=== PATIENT | male | born 1980 | race Caucasian/White ===

== ENCOUNTER 2024-10-01 11:41 | Emergency (ER) | payer MEDICAID, SELFPAY ==
[2024-10-01 12:03] VITALS: BP 128/72; PULSE 86; RESP 17; TEMP 36.6; O2SAT 97; BMI 27.3
--- NOTE | 2024-10-01 12:04 | XR_ITS ---
Examination: CT abdomen and pelvis without contrast. Coronal 3-D reconstructions. Sagittal 2-D reconstructions. Date and time of exam:October 01, 2021 at 1212 hrs. Indications: Right lower abdominal pain beginning 2 days ago CTDI: vol (mGy): 7.64 DLP: (mGycm): 409 Technique: Axial images of the abdomen have been obtained, 3 mm slice thickness Intravenous contrast material has not been administered. Low dose protocols were performed. One or more of the following dose reduction techniques were used; automated exposure control, adjustment of the mA and/or KV according to patient size, use of iterative reconstruction technique. Findings: 3 mm pulmonary nodule right lower lobe image 27 No visualized liver or splenic lesion No gallstones No pancreatic or adrenal mass Mild right hydronephrosis secondary to 2.5 mm mid right ureteral calculus, coronal image 66 Normal appendix No bowel obstruction No bladder calculi No prostatomegaly Advanced degenerative disc disease L5-S1 Impression: 3 mm pulmonary nodule right lower lobe, recommend PA lateral chest follow-up Mild right hydronephrosis secondary to 2.5 mm mid right ureteral calculus
--- NOTE | 2024-10-01 12:05 | PD.EDRME ---
Rapid Medical Screening Exam RME Arrival date/time: 10/01/24 11:41 44-year-old male presents emergency department complaints of abdominal pain and flank pain Chief Complaint: Abdominal Pain Time Seen by Provider: 10/01/24 12:02 Vital signs: Vital Signs Temperature 97.8 F 10/01/24 12:03 Pulse Rate 86 10/01/24 12:03 Respiratory Rate 17 10/01/24 12:03 Blood Pressure 128/72 10/01/24 12:03 Pulse Oximetry (%) 97 10/01/24 12:03 Oxygen Delivery Method Room Air 10/01/24 12:03
[2024-10-01] MEDS: ONDANSETRON ODT 4 MG TABRAP PO (12:22)
[2024-10-01] MEDS: HYDROcodone/APAP 5/325 TABLET 1 TAB PO (12:22)
[2024-10-01] MEDS: KETOROLAC INJ 30 MG/ML VIAL IM (12:22)
[2024-10-01 12:55] LABS: Basophils # (Auto) 0.1 Thou/mm3 (0.0-0.2); Basophils % (Auto) 1 % (0-2.5); Eosinophils # (Auto) 0.2 Thou/mm3 (0.0-0.5); Eosinophils % (Auto) 2 % (0-10); Hematocrit 39.2 % (41.0-53.0); Hemoglobin 13.7 g/dL (13.5-16.0); Immature Granulocytes % (Auto) 0 % (0-0); Immature Granulocytes Auto 0.05 Thou/mm3 (0.00-0.00); Lymphocytes # (Auto) 1.4 Thou/mm3 (1.0-4.8); Lymphocytes % (Auto) 11 % (10-50); Mean Corpuscular HGB Conc 34.9 g/dl (31.0-37.0); Mean Corpuscular Volume 89 fL (80-100); Monocytes # (Auto) 1.3 Thou/mm3 (0.0-0.8); Monocytes % (Auto) 11 % (0-12); Neutrophils # (Auto) 9.3 Thou/mm3 (1.8-7.7); Neutrophils % (Auto) 76 % (37-80); Nucleated Red Blood Cell % 0 /100 WBC (0); Platelet Count 301 Thou/mm3 (140-440); RDW Standard Deviation 42.3 fL (35.1-43.9); Red Blood Count 4.42 Miln/mm3 (4.50-5.90); White Blood Count 12.3 Thou/mm3 (3.8-10.6)
[2024-10-01 13:14] LABS: Alanine Aminotransferase 12 U/L (10-49); Albumin, Serum 4.2 gm/dL (3.5-5.0); Albumin/Globulin Ratio 1.8 (1.2-2.2); Alkaline Phosphatase 72 U/L (46-116); Anion Gap 3 (7-16); Aspartate Amino Transferase < 10 U/L (0-34); BUN/Creatinine Ratio 10 Ratio (12-20); Bilirubin,Total 0.6 mg/dL (0.3-1.2); Blood Urea Nitrogen 11 mg/dL (9-23); Calcium 9.3 mg/dL (8.3-10.6); Calcium (Corrected) 9.3 mg/dL (8.5-10.1); Carbon Dioxide 28.1 mMol/L (20.0-31.0); Chloride 107 mMol/L (98-107); Creatinine (Component) 1.1 mg/dL (0.6-1.3); Estimated Creatinine Clearance 85.7 mL/min (>60); Globulin 2.3 gm/dL (2.3-3.5); Glucose 114 mg/dL (74-106); Lipase 25 U/L (12-53); Osmolality,Calculated 276 (275-295); Sodium 138 mMol/L (136-145); Total Protein 6.5 gm/dL (5.7-8.2); eGFR > 60 See Note
--- NOTE | 2024-10-01 13:18 | EDNOTE_ITS ---
ED Abdominal Pain RME/HPI General Chief Complaint: Abdominal Pain Stated complaint: right lower ab pain Time seen by provider: 10/01/24 12:02 Arrival date/time: 10/01/24 11:41 44-year-old male presents to the emergency department complaints of right side abdominal pain and flank pain patient reports no fever does report nausea without vomiting Limitations: no limitations RME / HPI RME / HPI narrative: 10/01/24 11:41 44-year-old male presents emergency department complaints of abdominal pain and flank pain Related Data Previous Rx's ?Medication ?Instructions ?Recorded ibuprofen 800 mg tablet 800 mg PO TID #30 tabs 09/10/19 ciprofloxacin HCl 500 mg tablet 500 mg PO BID 7 days #14 tabs 10/01/24 hydrocodone 5 mg-acetaminophen 325 1 tab PO BID PRN pain #6 tabs 10/01/24 mg tablet ibuprofen 800 mg tablet 800 mg PO TID PRN pain #30 tabs 10/01/24 Allergies Allergy/AdvReac Type Severity Reaction Status Date / Time No Known Allergies Allergy Verified 09/11/23 23:57 Review of Systems Review of Systems Systems Reviewed: All systems reviewed, normal except as documented Constitutional Constitutional: Reports system reviewed and no additional complaints, except as documented, Denies fever(s) and Denies headache(s) Eyes Eyes: Reports system reviewed and no additional complaints, except as documented and Denies blurry vision ENT Ears, Nose, Mouth, and Throat: Reports system reviewed and no additional complaints, except as documented, Denies headache(s), Denies nasal congestion and Denies nasal discharge Cardiovascular Cardiovascular: Reports system reviewed and no additional complaints, except as documented, Denies chest pain and Denies dyspnea Respiratory Respiratory: Reports system reviewed and no additional complaints, except as documented, Denies chest congestion, Denies cough and Denies dyspnea Gastrointestinal Gastrointestinal: Reports system reviewed and no additional complaints, except as documented and Denies abdominal pain Genitourinary Genitourinary: Reports system reviewed and no additional complaints, except as documented, Denies difficulty urinating, Denies dysuria and Reports flank pain Integumentary/Breasts Skin/Breast: Reports system reviewed and no additional complaints, except as documented and Denies rash Neurologic Neurologic: Reports system reviewed and no additional complaints, except as documented, Reports as per HPI and Denies headache(s) Past Medical History Past Medical History CARDIAC: Negative Congestive Heart Failure RESPIRATORY: Negative Chronic Obstructive Pulmonary Disease (COPD) GENITOURINARY: Negative Renal Disease ENDOCRINE: Negative Diabetes Mellitus Type 1 or Diabetes Mellitus Type 2 PSYCHO/SOCIAL: Positive Depression and Anxiety Social History SMOKING STATUS: Current some day smoker ED Exam General Limitations: Present no limitations General appearance: Present alert and in no apparent distress Head Head exam: Present atraumatic Eye Eye exam: Present normal appearance, PERRL and EOMI; Absent conjunctival injection ENT ENT exam: Present normal exam, normal oropharynx and mucous membranes moist Neck Neck exam: Present normal inspection, full ROM and trachea midline Chest Chest inspection: Present normal inspection and symmetric chest wall rise Respiratory Respiratory exam: Present normal lung sounds bilaterally; Absent respiratory dis tress Cardiovascular Cardiovascular exam: Present regular rate, normal rhythm and normal heart sounds Abdominal Exam Abdominal exam: Present soft and normal bowel sounds; Absent distention, tenderness, guarding, rebound or rigidity Extremities Exam Extremities exam: Present normal inspection and full ROM Back Exam Back exam: Present normal inspection and full ROM; Absent CVA tenderness (R) or CVA tenderness (L) Neurological Exam Neurological exam: Present alert, oriented X3, CN II-XII intact, normal gait and reflexes normal; Absent motor sensory deficit Psychiatric Psychiatric exam: Present normal affect and normal mood Skin Skin exam: Present warm, dry, intact and normal color; Absent rash Course Quality Measures none Orders Category Date Time Status CT abdomen pelvis wo con Stat Exams 10/01/24 12:04 Completed CBC Stat Lab 10/01/24 12:34 Completed Comprehensive Metabolic Panel Stat Lab 10/01/24 12:34 Completed Drug Screen,Urine Stat Lab 10/01/24 13:20 Completed Lipase Stat Lab 10/01/24 12:34 Completed UA, C/S IF [Urinalysis, C/S if Indicated] Stat Lab 10/01/24 13:20 Completed Urine Culture Stat Lab 10/01/24 13:20 Received HYDROcodone*/APAP 5/325 [[place] 5/325] Med 10/01/24 12:04 Discontinued 1 tab PO X1 ONE Ketorolac Inj [Toradol Inj] Med 10/01/24 12:04 Discontinued 30 mg IM X1 ONE Ondansetron Odt [Zofran Odt] Med 10/01/24 12:04 Discontinued 4 mg PO X1 ONE Vital Signs Vital signs: Vital Signs Temperature 97.8 F 10/01/24 12:03 Pulse Rate 86 10/01/24 12:03 Respiratory Rate 17 10/01/24 12:03 Blood Pressure 128/72 10/01/24 12:03 Pulse Oximetry (%) 97 10/01/24 12:03 Oxygen Delivery Method Room Air 10/01/24 12:03 O2 saturation 97% room air within normal limits Abdominal Pain MDM MDM Narrative MDM Narrative:: 44-year-old male presents to the emergency department complaints of right side abdominal pain and flank pain patient reports no fever does report nausea without vomiting On exam patient appears to be in significant pain Lab work as well as CT scan obtained Patient given Toradol and [place] At time reevaluation patient reports pain is resolved CT scan consistent with kidney stone drug screen came back positive for methamphetamine Patient discharged home in no distress to follow-up with primary care doctor in the next 24 to 48 hours and for any worsening symptoms to return to the ER immediately Patient data External records reviewed:: [facility] previous records Clinical information provided by:: patient Social determinants that could affect healthcare access:: substance use Patient has the following chronic illnesses:: Substance abuse How is presenting disease/condition affected by chronic disease/condition?: no chronic disease Evaluation data The following diagnostics were reviewed and interpreted by me:: lab results and radiology exam(s) Lab and/or radiology exams considered but not ordered:: Labs and radiology obtained Interpretation Summary: Reviewed by me Medications / Prescriptions Medications or Prescriptions considered but not ordered:: Given Medication administrations:: Medication Administration History Discontinued Medications Hydrocodone Bitart/Acetaminophen (Hydrocodone/Apap 5/325 Tablet) 1 tab PO X1 ONE Stop: 10/01/24 12:05 Last Admin: 10/01/24 12:22 Dose: 1 tab Documented By: KELLY Ketorolac Tromethamine (Ketorolac Inj 30 Mg/Ml Vial) 30 mg IM X1 ONE Stop: 10/01/24 12:05 Last Admin: 10/01/24 12:22 Dose: 30 mg Documented By: KELLY Ondansetron HCl (Ondansetron Odt 4 Mg Tabrap) 4 mg PO X1 ONE; Protocol Stop: 10/01/24 12:05 Last Admin: 10/01/24 12:22 Dose: 4 mg Documented By: KELLY Given Consultations Consultation(s) initiated? (list below): No Diagnosis Differential diagnosis abdominal pain: abdominal pain, calculus of kidney, constipation and pancreatitis Most likely diagnosis given after review of the tests above:: Renal colic Admission Indicated Admission indicated?: not indicated Admission Request Was there a request for admission?: No Disposition Plan Disposition Plan: Discharge Discharge Attestation Discharge Attestation: The patient and all family members were given an opportunity to ask questions and understood the discharge instructions. Discharge instructions specifically effects, indications for sooner follow up or return to the emergency department, and the expected course of current diagnosis. Patient condition: Stable Discharge Plan Plan Patient Disposition: HOME (Self Care) Disposition Comment: Stable Prescriptions/Referrals Prescriptions/Med Rec: New ibuprofen 800 mg tablet 800 mg PO TID PRN (Reason: pain) Qty: 30 0RF hydrocodone-acetaminophen 5-325 mg tablet 1 tab PO BID MDD 10 PRN (Reason: pain) Qty: 6 0RF ciprofloxacin HCl 500 mg tablet 500 mg PO BID 7 Days Qty: 14 0RF No Action ibuprofen 800 mg tablet 800 mg PO TID Qty: 30 0RF Referrals: No Primary/Family,Physician [Primary Care Provider] - In 1 week Problem List Clinical Impression: Renal colic Patient/Caregiver Discharge Instructions Education Materials: ED Kidney Stone w/ Colic Additional Instructions: Please follow up with your primary care doctor in the next 24-48hrs for any worsening symptoms return here immediately Print Language: Iranian Stand Alone Forms: Allison Award Info., Patient Portal Info Letter Attestation Attestation The patient was seen by the midlevel practitioner. I, the co-signing physician, was present during the entire ER visit. While I did not physically examine the patient, I was available for consultation as needed.
[2024-10-01 14:05] LABS: Collection Type, Urine Clean Catch
[2024-10-01 14:15] LABS: Bilirubin,Urine Negative (Negative); Blood,Urine 3+ (Negative); Clarity,Urine Turbid (Clear/Hazy); Color,Urine Yellow (Lt Yel-Yel); Glucose, Urine Negative (Negative); Ketones,Urine Negative (Negative); Nitrite,Urine Negative (Negative); Protein,Urine 1+ (Neg - Trace); RBC,Urine 133 /hpf (0-3); Specific Gravity,Urine 1.024 (1.001-1.035); Squamous Epithelial Cell,Urine < 1 /hpf (0-5); Urobilinogen,Urine Negative mg/dL (0.0-1.0); WBC,Urine 12 /hpf (0-5)
[2024-10-01 14:17] LABS: Culture Indicated,Urine Yes; Leukocyte Esterase,Urine Positive (Negative)
[2024-10-01 14:22] LABS: Amphetamine/Methamp Scrn,U Positive (Negative); Barbiturate Screen,Urine Negative (Negative); Benzodiazepines Screen,Urine Negative (Negative); Benzoylecgonine Screen, Ur Negative (Negative); Fentanyl Screen,Urine Negative (Negative); Opiate Screen,Urine Negative (Negative); THC Screen,Urine Negative (Negative)
[2024-10-01 15:15] VITALS: BP 125/83; PULSE 78; RESP 19; TEMP 36.6; O2SAT 96
== END 2024-10-01 15:20 | disposition home or self-care (01) ==
PROVIDERS: Nurse Practitioner Primary Care; Emergency Provider Emergency Medicine
DX: N23 Unspecified renal colic (principal)
CPT/HCPCS: 36415; 74176; 80053; 80307; 81001; 83690; 85025; 87086; 96372; 99284; J1885; Q0162; A9270

== ENCOUNTER 2024-11-03 18:57 | Emergency (ER) | payer MEDICAID, SELFPAY ==
[2024-11-03 18:58] VITALS: BMI 27.4
[2024-11-03 20:08] VITALS: BP 143/95; PULSE 85; RESP 18; TEMP 36.9; O2SAT 96
--- NOTE | 2024-11-03 20:17 | XR_ITS ---
Examination: Hand, left 3 views Technique: Hand AP, oblique, lateral 3 views Date and time of exam: October 20242010 hrs. Indications: Patient fell today with injury to the hand, hand pain Findings: Acute intra-articular fracture distal radial metaphysis No dislocation No foreign body Impression: Acute intra-articular nondisplaced fracture distal radial metaphysis
--- NOTE | 2024-11-03 20:17 | XR_ITS ---
Examination: Left elbow 3 views Technique: Elbow AP, oblique, lateral 3 views Exam date and time: November 03, 20242027 hrs. Indications: Patient fell today with injury to the elbow, elbow pain. Findings: No acute fracture No dislocation No foreign body Impression: No acute fracture.
--- NOTE | 2024-11-03 20:17 | XR_ITS ---
Examination: Wrist, left 3 views Technique: Wrist AP, oblique, lateral 3 views Date and time of exam: Hours Indications: Patient fell today with injury to the wrist, wrist pain. Findings: Acute intra-articular fracture distal radial metaphysis No significant displacement Impression: Acute intra-articular fracture distal radial metaphysis
--- NOTE | 2024-11-03 20:22 | PD.EDUPEX ---
Upper Extremity Injury RME/HPI General Chief Complaint: Fall Stated Complaint: FELL FROM A 6-FT LADDER; FELL ON R-SIDE Time Seen by Provider: 11/03/24 20:17 Arrival date/time: 11/03/24 18:57 44M with no significant PMH presents to ED with L elbow to L hand pain after falling off a 6 foot ladder. Patient denies hitting his head, neck, back, ab, and lower extremities. Limitations: no limitations Related Data Previous Rx's ?Medication ?Instructions ?Recorded ibuprofen 800 mg tablet 800 mg PO TID #30 tabs 09/10/19 hydrocodone 5 mg-acetaminophen 325 1 tab PO BID PRN pain #6 tabs 10/01/24 mg tablet ibuprofen 800 mg tablet 800 mg PO TID PRN pain #30 tabs 10/01/24 ibuprofen 800 mg tablet 800 mg PO TID PRN pain #30 tabs 11/03/24 Allergies Allergy/AdvReac Type Severity Reaction Status Date / Time No Known Allergies Allergy Verified 11/03/24 19:01 Review of Systems Review of Systems Systems Reviewed: All systems reviewed, normal except as documented Constitutional Constitutional: Reports system reviewed and no additional complaints, except as documented, Denies fever(s) and Denies headache(s) ENT Ears, Nose, Mouth, and Throat: Denies disequilibrium and Denies headache(s) Cardiovascular Cardiovascular: Reports system reviewed and no additional complaints, except as documented, Denies chest pain and Denies dyspnea Respiratory Respiratory: Reports system reviewed and no additional complaints, except as documented, Denies cough and Denies dyspnea Gastrointestinal Gastrointestinal: Reports system reviewed and no additional complaints, except as documented, Denies abdominal pain, Denies nausea and Denies vomiting Musculoskeletal Musculoskeletal: Reports as per HPI and Reports arthralgias Neurologic Neurologic: Reports system reviewed and no additional complaints, except as documented, Denies confusion, Denies disequilibrium and Denies headache(s) Psychiatric Psychiatric: Denies confusion Past Medical History Past Medical History CARDIAC: Negative Congestive Heart Failure RESPIRATORY: Negative Chronic Obstructive Pulmonary Disease (COPD) GENITOURINARY: Negative Renal Disease ENDOCRINE: Negative Diabetes Mellitus Type 1 or Diabetes Mellitus Type 2 PSYCHO/SOCIAL: Positive Depression and Anxiety Social History SMOKING STATUS: Light (< 1 pack/day) ED Exam General Limitations: Present no limitations General appearance: Present alert and in no apparent distress Head Head exam: Present atraumatic Eye Eye exam: Present normal appearance, PERRL and EOMI ENT ENT exam: Present normal exam, normal oropharynx and mucous membranes moist Neck Neck exam: Present normal inspection, full ROM and trachea midline Chest Chest inspection: Present normal inspection and symmetric chest wall rise Respiratory Respiratory exam: Present normal lung sounds bilaterally Cardiovascular Cardiovascular exam: Present regular rate, normal rhythm and normal heart sounds Abdominal Exam Abdominal exam: Present soft and normal bowel sounds Expanded Upper Extremity Exam Elbow exam: Present tenderness (L) Forearm/Wrist exam: Present tenderness Hand exam: Present tenderness Back Exam Back exam: Present normal inspection and full ROM Neurological Exam Neurological exam: Present alert, oriented X3 and CN II-XII intact Psychiatric Psychiatric exam: Present normal affect and normal mood Skin Skin exam: Present warm, dry, intact and normal color Course Quality Measures none Orders Category Date Time Status XR elbow comp LT min 3V Stat Exams 11/03/24 20:17 Completed XR hand comp LT min 3V Stat Exams 11/03/24 20:17 Completed XR wrist comp LT min 3V Stat Exams 11/03/24 20:17 Completed HYDROcodone*/APAP 5/325 [[place] 5/325] Med 11/03/24 20:19 Discontinued 1 tab PO X1 ONE Ketorolac Inj [Toradol Inj] Med 11/03/24 22:24 Discontinued 60 mg IM X1 ONE Vital Signs Vital signs: Vital Signs Temperature 98.5 F 11/03/24 20:08 Pulse Rate 85 11/03/24 20:08 Respiratory Rate 18 11/03/24 20:08 Blood Pressure 143/95 H 11/03/24 20:08 Pulse Oximetry (%) 96 11/03/24 20:08 Oxygen Delivery Method Room Air 11/03/24 20:08 O2 at 96% on RA and WNLs Extremity Injury MDM Narrative MDM Narrative:: 44M with no significant PMH presents to ED with L elbow to L hand pain after falling off a 6 foot ladder. Patient denies hitting his head, neck, back, ab, and lower extremities. Physical exam reveals L elbow, forearm, wrist, and hand tenderness. ROM reduced, but normal cap refill. Normal pupil response and EOM. ENT clear. No neck, back, ab tenderness. ROM intact. Gait normal. Patient is afebrile, calm, and alert. XR shows intra-articular L wrist fx. 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 Sandoval on Thursday at 3 PM. Patient data External records reviewed:: [facility] previous records Clinical information provided by:: patient Social determinants that could affect healthcare access:: none Patient has the following chronic illnesses:: none How is presenting disease/condition affected by chronic disease/condition?: no chronic disease Evaluation data The following diagnostics were reviewed and interpreted by me:: radiology exam(s) Lab and/or radiology exams considered but not ordered:: ordered Interpretation Summary: above Medications / Prescriptions Medications or Prescriptions considered but not ordered:: ordered Medication administrations:: Medication Administration History Discontinued Medications Hydrocodone Bitart/Acetaminophen (Hydrocodone/Apap 5/325 Tablet) 1 tab PO X1 ONE Stop: 11/03/24 20:20 Last Admin: 11/03/24 20:37 Dose: 1 tab Documented By: ERIKA Ketorolac Tromethamine (Ketorolac Inj 60 Mg/2 Ml Vial) 60 mg IM X1 ONE Stop: 11/03/24 22:25 Last Admin: 11/03/24 22:42 Dose: 60 mg Documented By: OA above Consultations Consultation(s) initiated? (list below): No Diagnosis Upper Extremity Injury Differential Diagnosis: sprain and strain of wrist, fracture of wrist, finger sprain, dislocation of finger, Colles' fracture, fracture of hand, dislocation of shoulder, fracture of humerus and fracture of clavicle Most likely diagnosis given after review of the tests above:: wrist fx Admission Indicated Admission indicated?: not indicated Admission Request Was there a request for admission?: No Disposition Plan Disposition Plan: Discharge Discharge Attestation Discharge Attestation: The patient and all family members were given an opportunity to ask questions and understood the discharge instructions. Discharge instructions specifically effects, indications for sooner follow up or return to the emergency department, and the expected course of current diagnosis. Patient condition: Stable Discharge Plan Plan Patient Disposition: HOME (Self Care) Disposition Comment: Stable Prescriptions/Referrals Prescriptions/Med Rec: New ibuprofen 800 mg tablet 800 mg PO TID PRN (Reason: pain) Qty: 30 0RF No Action ibuprofen 800 mg tablet 800 mg PO TID Qty: 30 0RF ibuprofen 800 mg tablet 800 mg PO TID PRN (Reason: pain) Qty: 30 0RF hydrocodone-acetaminophen 5-325 mg tablet 1 tab PO BID MDD 10 PRN (Reason: pain) Qty: 6 0RF Referrals: No Primary/Family,Physician [Primary Care Provider] - In 1 week Gio Sandoval MD [Physician] - 11/07/24 3:00 pm Problem List Clinical Impression: Fracture of wrist Patient/Caregiver Discharge Instructions Additional Instructions: Please follow-up with PCP within 24-48 hours and return immediately if symptoms worsen. Please go to scheduled ortho appointment with Dr. Sandoval on Thursday at 3 PM. Print Language: Ukrainian Stand Alone Forms: Patient Portal Info Letter PA/ELECTRICAL SERVICE TECHNICIAN Supervising Physician PA/ELECTRICAL SERVICE TECHNICIAN Supervising Physician: Dr. Mcdaniel
[2024-11-03] MEDS: HYDROcodone/APAP 5/325 TABLET 1 TAB PO (20:37)
[2024-11-03] MEDS: KETOROLAC INJ 60 MG/2 ML VIAL IM (22:42)
== END 2024-11-03 22:54 | disposition home or self-care (01) ==
PROVIDERS: Emergency Provider Emergency Medicine
DX: S52.572A Other intraarticular fracture of lower end of left radius, initial encounter for closed fracture (principal); S69.92XA Unspecified injury of left wrist, hand and finger(s), initial encounter; S59.902A Unspecified injury of left elbow, initial encounter; W11.XXXA Fall on and from ladder, initial encounter
CPT/HCPCS: 29125; 73080; 73110; 73130; 96372; 99283; J1885; A9270

== ENCOUNTER 2024-11-18 15:18 | Emergency (ER) | payer MEDICAID, SELFPAY ==
[2024-11-18 15:49] VITALS: BMI 28.7
--- NOTE | 2024-11-18 15:54 | XR_ITS ---
Examination: Wrist, left 3 views Technique: Wrist AP, oblique, lateral 3 views Date and time of exam: November 18, 2024 1625 hrs. Indications: Injury to the wrist one month ago with persistent wrist pain. Findings: Mild narrowing radiocarpal joint No acute fracture Significant healing intra-articular fracture distal radial metaphysis compared to the November 03, 2024 exam Impression: Significant healing intra-articular fracture distal radial metaphysis with stable and satisfactory alignment compared to November 03, 2024
--- NOTE | 2024-11-18 16:30 | PD.EDMEDCL ---
ED Medical Clearance RME/HPI General Chief complaint: Medical Clearance Stated complaint: MEDICAL CLEARANCE Time Seen by Provider: 11/18/24 15:51 Arrival date/time: 11/18/24 15:18 RME / HPI RME / HPI Narrative: DR. DAVID MAIN ED EVALUATION: 44 year old male presents to the Emergency Department brought as a medical clearance for medical clearance for possible broken left wrist, per patient. Pain is described as aching and rated mild to moderate in severity. Movement exacerbates the pain. Patient states he was diagnosed with wrist fracture, had a splint in place, but removed it because it was itching. He has already had a follow up appoinmtent with Dr. Sandoval and has subsequent reexamination scheduled in a few days. Related Information Previous Rx's ?Medication ?Instructions ?Recorded ibuprofen 800 mg tablet 800 mg PO TID #30 tabs 09/10/19 hydrocodone 5 mg-acetaminophen 325 1 tab PO BID PRN pain #6 tabs 10/01/24 mg tablet ibuprofen 800 mg tablet 800 mg PO TID PRN pain #30 tabs 10/01/24 ibuprofen 800 mg tablet 800 mg PO TID PRN pain #30 tabs 11/03/24 Allergies Allergy/AdvReac Type Severity Reaction Status Date / Time No Known Allergies Allergy Verified 11/03/24 19:01 Review of Systems Review of Systems Systems Reviewed: All systems reviewed, normal except as documented Narrative Review of Systems: GEN: No fever, no chills, no weight loss EYES: No discharge, no visual changes, no pain HEENT: No ear pain, no congestion, no sore throat PULM: No shortness of breath, no cough, no congestion CV: No chest pain, no dyspnea on exertion, no palpitations GI: No nausea, no vomiting, no diarrhea, no pain, no constipation : No frequency, no urgency and no dysuria MUSC/SKEL: + left wrist pain, no back pain SKIN: No rash PSYCH: No hallucinations, no depression HEME/LYMPH: No easy bleeding or bruising tendencies NEURO: No weakness, no headache Past Medical History Past Medical History PSYCHO/SOCIAL: Positive Depression and Anxiety Social History SMOKING STATUS: Former smoker ED Exam Narrative Physical exam: GENERAL APPEARANCE: alert and oriented x 4, well-developed, well-nourished, no acute distress VITALS: All vitals were reviewed and the pulse ox is 98% on room air, which is normal according to my interpretation. HEENT: Normocephalic, atraumatic; pupils equal, round, reactive to light; EOMI; mucous membranes pink, moist; oropharynx clear NECK: Supple LUNGS: CTABL; no wheezes, no rales, no rhonchi HEART: Regular rate, regular rhythm; normal S1, S2; no murmurs ABDOMEN: non distended; normal BS; soft, no tenderness, no guarding, no rebound; no masses, no organomegaly, no hernia BACK: no CVA tenderness EXTREMITIES: atraumatic; no edema NEUROLOGIC: awake; alert and oriented x4; cranial nerves II-XII grossly intact; no focal sensory or motor deficits PSYCHIATRIC: appropriate mood and affect SKIN: warm, dry, normal color; no rashes Course Quality Measures none Orders Category Date Time Status XR wrist comp LT min 3V Stat Exams 11/18/24 15:54 Completed Acetaminophen Tab [Tylenol ES Tab] Med 11/18/24 17:19 Discontinued 1,000 mg PO X1 ONE Ketorolac Inj [Toradol Inj] Med 11/18/24 17:33 Discontinued 30 mg IM X1 ONE Reevaluation(s) Reevaluation #1: Patient remains clinically stable throughout the emergency department visit. Re-assessment at the time of disposition demonstrates that the patient is in no acute distress. We reviewed all the results, analysis, and treatment plans. Patient is amenable to discharge. Strict return precautions were outlined. Patient was discharged in stable condition. Time: 17:37 Vital Signs Vital signs: Vital Signs Temperature 97.7 F 11/18/24 17:36 Pulse Rate 99 11/18/24 17:36 Respiratory Rate 18 11/18/24 17:36 Blood Pressure 132/97 H 11/18/24 17:36 Pulse Oximetry (%) 97 11/18/24 17:36 Oxygen Delivery Method Room Air 11/18/24 17:36 Procedures -ED Orthopedic Splinting/Casting Injury #1: Side: right Upper Extremity Injury Location: wrist Upper Extremity Immobilizer: sugar tong splint and Sanket wrap Additional Comments: sugar tong splint placed by staff on right forearm for immobilzation of nondisplaced right distal radius fracture. NV intact pre and post splint. Patient tolerated well. No complications. Medical Clearance MDM Narrative MDM Narrative:: I, Dede Stern am scribing for and in the presence of Dr. David. Patient data External records reviewed:: [facility] previous records (Reviewed last ED visit dated 11/03/24, discharged with the following: Fracture of wrist.) Clinical information provided by:: patient Social determinants that could affect healthcare access:: none Patient has the following chronic illnesses:: Denies any PMHx, surgeries, daily medications, or known allergies. How is presenting disease/condition affected by chronic disease/condition?: no chronic disease Evaluation data The following diagnostics were reviewed and interpreted by me:: radiology exam(s) (XR right wrist shows progressive healing of right dital radius fracture per my interpretation) Lab and/or radiology exams considered but not ordered:: none Interpretation Summary: Procedure(s): XR wrist comp LT min 3V Accession Number(s): [id number] cc: Taz Talbot MD; NO PRIMARY/FAMILY,PHYSICIAN; Alicia David MD~ Examination: Wrist, left 3 views Technique: Wrist AP, oblique, lateral 3 views Date and time of exam: November 18, 2024 1625 hrs. Indications: Injury to the wrist one month ago with persistent wrist pain. Findings: Mild narrowing radiocarpal joint No acute fracture Significant healing intra-articular fracture distal radial metaphysis compared to the November 03, 2024 exam Impression: Significant healing intra-articular fracture distal radial metaphysis with stable and satisfactory alignment compared to November 03, 2024 Dictated By: Taz Talbot MD Medications / Prescriptions Medications or Prescriptions considered but not ordered:: none Medication administrations:: Medication Administration History Discontinued Medications Acetaminophen (Acetaminophen 500 Mg Tablet) 1,000 mg PO X1 ONE Stop: 11/18/24 17:20 Last Admin: 11/18/24 17:29 Dose: 1,000 mg Documented By: OA Ketorolac Tromethamine (Ketorolac Inj 30 Mg/Ml Vial) 30 mg IM X1 ONE Stop: 11/18/24 17:34 Last Admin: 11/18/24 17:46 Dose: 30 mg Documented By: SL see above if any Consultations Consultation(s) initiated? (list below): No Diagnosis Medical Clearance Differential Diagnosis: other (wrist fracture, wrist dislocation, contusion) Most likely diagnosis given after review of the tests above:: Distal radial fracture Medical clearance for incarceration Admission Indicated Admission indicated?: not indicated Admission Request Was there a request for admission?: No Disposition Plan Disposition Plan: Discharge Discharge Attestation Discharge Attestation: The patient and all family members were given an opportunity to ask questions and understood the discharge instructions. Discharge instructions specifically effects, indications for sooner follow up or return to the emergency department, and the expected course of current diagnosis. Patient condition: Stable Discharge Plan Plan Patient Disposition: Custodial/Court/Law Disposition Comment: Okay to book Prescriptions/Referrals Prescriptions/Med Rec: No Action ibuprofen 800 mg tablet 800 mg PO TID Qty: 30 0RF ibuprofen 800 mg tablet 800 mg PO TID PRN (Reason: pain) Qty: 30 0RF ibuprofen 800 mg tablet 800 mg PO TID PRN (Reason: pain) Qty: 30 0RF hydrocodone-acetaminophen 5-325 mg tablet 1 tab PO BID MDD 10 PRN (Reason: pain) Qty: 6 0RF Referrals: No Primary/Family,Physician [Primary Care Provider] - In 1 week Gio Sandoval MD [Physician] - None Problem List Clinical Impression: Distal radial fracture, Medical clearance for incarceration Patient/Caregiver Discharge Instructions Education Materials: ED Splint Care, Fiberglass Additional Instructions: Follow up with Dr. Sandoval as scheduled. Print Language: Kinyarwanda
[2024-11-18] MEDS: ACETAMINOPHEN 500 MG TABLET 1000 MG PO (17:29)
[2024-11-18 17:36] VITALS: BP 132/97; PULSE 99; RESP 18; TEMP 36.5; O2SAT 97
[2024-11-18] MEDS: KETOROLAC INJ 30 MG/ML VIAL IM (17:46)
== END 2024-11-18 17:49 ==
PROVIDERS: Emergency Provider Emergency Medicine
DX: Z02.89 Encounter for other administrative examinations (principal); S52.502A Unspecified fracture of the lower end of left radius, initial encounter for closed fracture; X58.XXXA Exposure to other specified factors, initial encounter
CPT/HCPCS: 73110; 96372; 99283; J1885; A9270

== ENCOUNTER → 2024-11-28 | Outpatient (CLI) | payer MEDICAID, SELFPAY ==
--- NOTE | 2024-11-28 10:05 | XR_ITS ---
Examination: Wrist, left 3 views Technique: Wrist AP, oblique, lateral 3 views Date and time of exam: November 28, 2024 1033 hours INDICATIONS: Injury to the wrist 2 weeks ago, persistent wrist pain FINDINGS: Healed fracture distal radial metaphysis intra-articular Stable and satisfactory alignment IMPRESSION: Healed fracture distal radial metaphysis
== END | disposition home or self-care (01) ==
LOC: CDIM 09:58
PROVIDERS: Referring Provider Orthopaedic Surgery; Visit Provider Orthopaedic Surgery
DX: S69.92XA Unspecified injury of left wrist, hand and finger(s), initial encounter (principal); X58.XXXA Exposure to other specified factors, initial encounter
CPT/HCPCS: 73110